=== PATIENT | female | born 2000 | race Caucasian/White ===

== ENCOUNTER 2022-08-09 08:12 | Outpatient (CLI) | payer BC, SELFPAY ==
--- NOTE | 2022-08-09 08:15 | CRLHL7_ITS ---
For Patients: As a result of the Cures Act, medical imaging exams and procedure reports are released immediately into your electronic medical record. You may view this report before your referring provider. If you have questions, please contact your health care provider. INDICATION: First trimester scan, establish dates. COMPARISON: None. TECHNIQUE: Real-time lopez-scale imaging of the pelvis was performed. FINDINGS: Sonographic imaging demonstrates a single living intrauterine gestation. The embryo demonstrates a regular cardiac rate measuring 159 beats per minute. The embryo`s crown-rump length measurement of 6.2 cm corresponds to a gestational age of 12 weeks 4 days with a sonographic due date of 02/17/2023. There is a normal-appearing yolk sac. There are no gross abnormalities noted within the embryo at this early state of development. The gestational sac has a normal appearance. There is no evidence of a perigestational hemorrhage. The amount of fluid within the sac appears appropriate for gestational age. The cervix is closed. The myometrium appears somewhat hypervascular, likely incidental. The ovaries are of normal size. There are no suspicious fluid collections noted in the cul-de-sac. IMPRESSION: Single living intrauterine with sonographic gestational age 12 weeks 4 days and sonographic due date 02/17/2023. Dictated by Konrad Bull MD @ 08/09/2022 10:40:19 AM (Electronically Signed)
== END 2022-08-09 08:13 | disposition home or self-care (01) ==
LOC: US 08:13
PROVIDERS: PCP Family Medicine; Visit Provider Advanced Practice Midwife
DX: Z34.91 Encounter for supervision of normal pregnancy, unspecified, first trimester (principal); Z3A.11 11 weeks gestation of pregnancy
CPT/HCPCS: 0353U; 76801; 80306; 84443; 86592; 86703; 86762; 86787; 86803; 86850; 86900; 86901; 87086; 87340; 87491; 87591

== ENCOUNTER 2022-08-09 09:04 | Outpatient (CLI) | payer BC, SELFPAY ==
[2022-08-09 14:58] LABS: Chlamydia DNA Amplified* NOT DETECTED (No Detected); GC DNA Amplified* NOT DETECTED (No Detected)
== END 2022-08-09 09:05 | disposition home or self-care (01) ==
PROVIDERS: PCP Family Medicine; Visit Provider Advanced Practice Midwife
DX: Z34.91 Encounter for supervision of normal pregnancy, unspecified, first trimester (principal); Z3A.11 11 weeks gestation of pregnancy
CPT/HCPCS: 0353U; 80306; 84443; 86592; 86703; 86762; 86787; 86803; 86850; 86900; 86901; 87086; 87340

== ENCOUNTER 2022-11-30 13:49 | Outpatient (CLI) | payer MEDICAID, SELFPAY ==
[2022-11-30 18:19] LABS: Chlamydia DNA Amplified* NOT DETECTED (No Detected); GC DNA Amplified* NOT DETECTED (No Detected)
== END 2022-11-30 13:50 | disposition home or self-care (01) ==
PROVIDERS: PCP Family Medicine; Visit Provider Obstetrics & Gynecology
DX: Z34.93 Encounter for supervision of normal pregnancy, unspecified, third trimester (principal); Z3A.28 28 weeks gestation of pregnancy
CPT/HCPCS: 86592; 86703; 86803; 87340; 87491; 87591

== ENCOUNTER 2023-01-25 11:17 | Outpatient (CLI) | payer MEDICAID, SELFPAY ==
[2023-01-25 12:00] LABS: Amnisure Rom* Negative
[2023-01-25 17:49] LABS: Chlamydia DNA Amplified* NOT DETECTED (No Detected); GC DNA Amplified* NOT DETECTED (No Detected)
[2023-01-26 19:49] LABS: Strep B DNA Probe POSITIVE (Negative)
[2023-01-26 19:50] LABS: Strep B Pen/Amox Allergy No
== END 2023-01-25 11:18 | disposition home or self-care (01) ==
PROVIDERS: PCP Family Medicine; Visit Provider Obstetrics & Gynecology
DX: Z34.93 Encounter for supervision of normal pregnancy, unspecified, third trimester (principal); O26.893 Other specified pregnancy related conditions, third trimester; N89.8 Other specified noninflammatory disorders of vagina; Z3A.38 38 weeks gestation of pregnancy
CPT/HCPCS: 84112; 87081; 87491; 87591; 87653

== ENCOUNTER 2023-02-15 13:41 | Outpatient (CLI) | payer MEDICAID, SELFPAY | END 2023-02-15 13:42 | disposition home or self-care (01) | PROVIDERS: PCP Family Medicine; Visit Provider Obstetrics & Gynecology | DX: Z34.90 Encounter for supervision of normal pregnancy, unspecified, unspecified trimester (principal); B37.31 Acute candidiasis of vulva and vagina | CPT/HCPCS: 87086 ==

== ENCOUNTER 2023-02-21 18:30 | Inpatient (IN) | payer MEDICAID, SELFPAY ==
[2023-02-21] VITALS (46 sets, daily range): BP systolic 115–152; BP diastolic 66–93; PULSE 75–119; RESP 16–20; TEMP 36.6–37; O2SAT 98–100; BMI 27.1
[2023-02-21] MEDS: LACTATED RINGERS 1000 ML 1,000 ML 1200 ML IV ×2 (18:35→20:13)
[2023-02-21] MEDS: AMPICILLIN 2 GM in 0.9 % SODIUM CHLORIDE Mini-bag 100 ML IVPB (19:04)
[2023-02-21] MEDS: fentaNYL 100 MCG/2 ML inj 25 MCG INTRATHECA (19:25)
--- NOTE | 2023-02-21 19:31 | W.PM.LDBA ---
Subjective History of Present Illness Date Seen: 02/21/23 Narrative: Patient is being admitted to Labor and Delivery in labor for delivery. She is a 23 year old at 39 6/7 weeks gestation. Her full history and physical was dictated by Dr. CUNNINGHAM on 02/01/23. Please see this for details. Patient came into labor and delivery with painful uterine contractions and cervical change. Admitted in labor for delivery. Specific Issues/Plans H&P by OCTAVIO on 02/01/23 1. Hx of marijuana use -UDS at [facility] positive -reports continued use at 34 weeks; nightly for insomnia -discussed meconium testing of baby 2. FOB recently cheated on her, concern for possible STD exposure -STI panel repeated at 28 week visit: all negative -Aware to watch for herpes lesions 3. Hx of anxiety and depression -took meds in HS, unsure which -currently looking into therapy 4. Needs PP pap Recently , started dating FOB (Carl), and found out he was cheating on her. He has been at visits since. Lives at home with her parents who are supportive. Covid: vaccinated but not boosted Flu: 02/08/23 Tdap: 12/14/22 OB - Problem Based A/P Additional Plan (1) Active labor: Status: Acute Plan Active stage of labor, GBS positive receiving Ampicillin. ITN in place. Will start pushing now. OB Exam Physical Exam Vital signs: Temp Pulse Resp BP Pulse Ox 98.4 F 78 20 131/81 98 02/21/23 17:21 02/21/23 19:29 02/21/23 17:21 02/21/23 19:29 02/21/23 19:23 Detailed Labor and Delivery Exam Patient Gravid: Yes Dilation (cm): 9 Effacement (%): 100 Cervix position: mid Consistency: soft Tachysystole: No Contraction intensity: Strong/Firm Fetus (Single) Station: 0 Amniotic Membrane Status: AROM (At 9.5cm with cervical check) Amniotic Membrane Fluid Description: Clear Heart Rate Baseline: 110 Monitor Accelerations: Present Monitor Decelerations: None Milieu Manager Variability: Moderate (6-25)
--- NOTE | 2023-02-21 19:32 | P.ANBPRC_ITS ---
[facility] Medical History Adjustment disorder with depressed mood ?F43.21 - Adjustment disorder with depressed mood (ICD-10) Migraine without aura ?G43.009 - Migraine without aura, not intractable, without status migrainosus (ICD-10) Cyclic vomiting syndrome ?R11.15 - Cyclical vomiting syndrome unrelated to migraine (ICD-10) Attention deficit hyperactivity disorder (ADHD), predominantly inattentive type ?F90.0 - Attention-deficit hyperactivity disorder, predominantly inattentive type (ICD-10) Family History Father Attention deficit hyperactivity disorder Maternal Grandmother High blood pressure Mother OCD (obsessive compulsive disorder) Maternal Grandfather Melanoma Paternal Grandfather Cancer Social History Narrative: , non-smoker, no EtOH SOCIAL? ? Education: associates? ? 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 ? Partner: Just got , started dating the FOB, and found out he was cheating on her. Not together, and not sure if he will be involved? ? Lives with: at home? ? Pets: dog? ? Abuse: Denies past (hesitated to answer though), Safe with recent partner also? ? Special Diet: Denies? ? Ok with a blood transfusion: yes? ? Culture or rastafari beliefs: denies? RISK FACTORS? ? Exercise Times/wk: denies? ? Depression/Anxiety: both.? ? Previous Treatments: took meds in HS, does not remember what. Therapy, looking into currently. OTILIA: 7 PHQ 9: 5? ? Seat Belt Use: Routinely ? Smoking: Denies present? ?Vaped X 4 years. Alcohol/day: Prior to finding out she was at 5 weeks. ? ? Caffeine: 1 pop, 1 coffee a day. ? ? Drug Use: Denies present. Stopped marijuana when she was . ? Smoking Status: Former smoker Little interest or pleasure in doing things: several days Feeling down, depressed, or hopeless: not at all Meds Home Medications and Allergies Home Medications Medication Instructions Recorded Confirmed Type prenat.vits,charlie,kuq-[id number] 1 tab PO QDAY 08/05/22 02/15/23 History calcium carbonate 600 mg calcium 600 mg PO QDAY 11/02/22 02/15/23 History (1,500 mg) tablet (Calcium) Allergies Allergy/AdvReac Type Severity Reaction Status Date / Time No Known Drug Allergies Allergy Verified 02/21/23 17:39 Results Vital Signs Vital Signs: Last Vital Signs Temp 98.4 F 02/21/23 17:21 Pulse 117 H 02/21/23 19:32 Resp 20 02/21/23 17:21 BP 135/82 02/21/23 19:32 Pulse Ox 98 02/21/23 19:23 Weight: 71.849 kg Height: 162.56 cm Anesthesia Procedures Intrathecal Patient Location: OB Start Time: 19:15 Stop Time: 19:30 Start Date: 02/21/23 Stop Date: 02/21/23 Reason for Block: procedure for pain Patient Position: sitting Performed By: Suzie Tanner Preanesthetic Checklist: IV checked, risks and benefits discussed, monitors and equipment checked, pre-op evaluation and timeout performed Prep: chlorhexidine gluconate Monitoring: blood pressure monitoring, continuous pulse oximetry and heart rate Approach: midline Vertebral Space: lumbar (1-5) Needle Type: Pencan Injection Technique: single-shot Needle gauge: 25 Needle Length (cm): 10 cm Events: cerebrospinal fluid
[2023-02-21] MEDS: OXYTOCIN 30 unit/500 ML in NS 30 UNIT/500 ML BAG 300 UNIT IVPB (20:50)
--- NOTE | 2023-02-21 21:17 | W.PM.OBVAGDE ---
OB Procedure Vag Delivery Mother Details Mother Details: The patient is a 23 year-old, 2, Para 0, admitted on 02/21/23 at 39 6/7 Days gestation. Admitted in labor for delivery. : 2 Para: 1 Weeks Gestation: 39.6 Admission Date: 02/21/23 Additional Details Amniotic Membrane Status: SROM (At 9.5cm with cervical check) Amniotic Membrane Rupture Date: 02/21/23 Amniotic Membrane Rupture Time: 19:29 Amniotic Membrane Fluid Description: Clear Analgesia/Anesthesia Type: Intrathecal Waterbirth: No Pitcoin: No Intrapartal Events: Precipitous Labor <3 Hrs Labor Onset: 18:30 Complete: 19:40 Pushin:39 Heart: heart tones during second stage were category 2. Deep deceleration with pushing and slow recovery, but good acceleration with scalp stimulation and variability. Delivery Details Delivery Date: 02/21/23 Delivery Time: 20:49 Route of delivery: Infant Gender: Male Infant Viability: Alive; Heart Rate Present Position at Delivery: OA Delivery Details: Patient had moderate crown and good pushing efforts, perineum noted to be not stretching out with good pushing efforts for at least 2 sets of contractions. Recommendation was given to perform episiotomy, verbal consent obtained. Adequate anesthesia confirmed and with next push a mediolateral episiotomy was performed with subsequent delivery of baby via spontaneous vaginal delivery. Infant was placed on maternal abdomen.? Cord was clamped and cut after a 30-60 second delay. Nose and mouth were bulb suctioned.? Infant weight pending. 1 Minute Interval Total Score: 8 5 Minute Interval Total Score: 8 Additional Details Shoulder Dystocia: No Placenta Delivery Time: 20:53 Placental Delivery Description: Spontaneous Delivery repair: Vicryl Procedure Done: Global Blood Loss: 50 Laceration: Periurethral - 1st Degree Episiotomy Description: Left Mediolateral Blood Loss Measurement Type: QBL Bakri Used: No Sponge/Need Count Correct: Yes Cord Vessel Description: 3 Vessels, Nuchal Cord and Delivered through Event Summary Status: Mother and were stable after delivery. Disposition: floor
[2023-02-21] MEDS: ACETAMINOPHEN 500 MG TABLET 1000 MG PO (21:48)
[2023-02-22] MEDS: IBUPROFEN 600 MG TABLET PO ×2 (00:24→09:09)
[2023-02-22 00:35] VITALS: BP 128/79; PULSE 89; RESP 16; TEMP 36.6; O2SAT 98
[2023-02-22] MEDS: LANOLIN CREAM 1 APPLIC TOPICAL (01:30)
[2023-02-22] MEDS: ACETAMINOPHEN 500 MG TABLET 1000 MG PO ×3 (04:18→21:21)
[2023-02-22 04:26] VITALS: BP 113/69; PULSE 86; RESP 16; TEMP 36.8; O2SAT 98
[2023-02-22 06:42] LABS: Hemoglobin* 10.2 gm/dL (12.0-16.0)
[2023-02-22 07:45] VITALS: BP 111/79; PULSE 82; RESP 16; TEMP 37; O2SAT 99
[2023-02-22] MEDS: DOCUSATE SODIUM 100 MG CAPSULE PO (09:09)
--- NOTE | 2023-02-22 10:45 | P.OBPN_ITS ---
OB - PN:Subj Subjective Date Seen: 02/22/23 Patient comments OB post-: no complaints and pain well controlled [place] infant status: and doing well [place] feeding status: exclusively Narrative: Tania is a 23 y.o. who was admitted to [facility] for IOL for postdates.? She had an uncomplicated NVD.? ?? The patient feels well.? The pain is well controlled with current medications.? She has no new complaints.? She is breast feeding and reports things are going well.? the patient has done well.? Vitals have been stable.? She has remained afebrile.? Has a good appetite, is tolerating a general diet.? She is voiding without difficulty.? She is passing gas and has not had a bowel movement.? She is ambulating and denies any dizziness.? Has Small amount of rubra lochia.? OB - PN: Obj Exam Physical Exam: Vital signs: Temp Pulse Resp BP Pulse Ox O2 Del Method 98.6 F 82 16 111/79 99 Room Air 02/22/23 07:45 02/22/23 07:45 02/22/23 07:45 02/22/23 07:45 02/22/23 07:45 02/22/23 07:45 Narrative: GENERAL APPEARANCE:? normal affect, alert, no distress? MOOD:? appropriate? HEENT: normocephalic, neck supple, full ROM? CHEST:? Symmetrical chest wall movement.? Normal respiratory effort.? Clear to auscultation ? HEART:? regular rate and rhythm? ABDOMEN:? soft, non-tender. Uterine fundus is firm, at Umbilicus, Midline and is appropriate for the stage of recovery.? PERINEUM:? mild edema of the perineum, there is a periurethral degree laceration and a mediolateral episiotomy that is healing well.? EXTREMITIES:? normal and 1+ edema? OB - PN: Obj Data Labs Labs: Laboratory Results - last 24 hr 02/22/23 06:04 Hgb 10.2 L OB - PN: A/P Delivery Assessment and Plan (1) care and examination immediately after delivery: Status: Acute (2) Lactating mother: Status: Acute Plan day: 1 Plan: routine care Comments: G 2 P 1 status post uncomplicated NVD??? 1.? Continue route PP cares? 2.? .? May see if desired? 3.? Anticipate discharge home tomorrow?
[2023-02-22 11:30] VITALS: BP 112/74; PULSE 98; RESP 16; TEMP 36.8; O2SAT 98
[2023-02-22 15:36] VITALS: BP 129/70; PULSE 86; RESP 18; TEMP 36.8; O2SAT 98
--- NOTE | 2023-02-22 16:58 | PC.SOCIAL ---
Addendum entered by GIULIA Oneill 02/27/23 10:44: On 02/23/23, received a message from [facility] CPS worker, Jillian Don, informing that the report was screened in for family assessment. On 02/27, faxed umbilical test results [facility] at [phone]. Original Note: Received a social work referral for pt for resources and admitting to THC use throughout . Met with pt and pt's former significant other ('s father). Discussed THC drug use through . Pt admits to using THC through entire approximately two times a week for feelings of insomnia. Pt is aware that drug screening was completed on and results are pending. Informed pt that this worker will be completing a CPS report to [facility]. Discussed that process with pt. Discussed pt's current social environment. Pt has support of the 's father, however, she reports they are no longer in a relationship. Pt currently lives with her parents and reports that they are very supportive. Pt informs that the 's paternal grandmother is also very supportive. Pt is currently receiving WIC services through [facility]. Provided contact information for [employer] parenting support through [facility]. Discussed the community action agencies in [facility] which include [facility] in [place] and [facility] in [place] and provided contact information for each agency. Pt feels well supported and is not in need of any other resources at this time. Informed pt that she may reach out to social work if she has any further questions. Phone call to [facility] CPS intake at [phone] and left voicemail leaving verbal report for neglect. Completed written CPS report and faxed to [facility] at [phone]. Social work will follow up as needed.
[2023-02-22 19:30] VITALS: BP 118/81; PULSE 86; RESP 16; TEMP 37.2; O2SAT 97
[2023-02-23 03:49] VITALS: BP 122/83; PULSE 78; RESP 16; TEMP 36.9; O2SAT 98
--- NOTE | 2023-02-23 07:20 | P.DS_ITS ---
DS: Providers Provider Date Seen: 02/23/23 Date of admission: 02/21/23 18:30 Primary care physician: Konrad Horton MD Admitting Clinician: Valerie Barahona MD Attending Physician on discharge: Valerie Barahona MD Date of Discharge: 02/23/23 DS: Diagnosis Discharge Diagnosis (1) Lactating mother: Status: Acute (2) care following vaginal delivery: Status: Acute (3) Borderline personality disorder: Status: Acute (4) Adjustment disorder with depressed mood: Status: Acute (5) Attention deficit hyperactivity disorder (ADHD), predominantly inattentive type: Status: Acute Exam Narrative: Exam Narrative: GENERAL APPEARANCE:? normal affect, alert, no distress? MOOD:? appropriate? CHEST:? clear to auscultation and percussion? HEART:? regular rate and rhythm? ABDOMEN:? soft, non-tender the uterine fundus is 2 cm Below Umbilicus, Midline and is appropriate for the stage of recovery. ? PERINEUM:? mild edema of the perineum, there is a left mediolateral episiotomy that is healing well.? EXTREMITIES:? normal and no edema? Patient has no complaints? No active bleeding?? Doing well? She is requesting discharge home.? Const: Vital Signs, click to edit/add: Vital Signs - 24 hr 02/22/23 07:45 02/22/23 11:30 02/22/23 15:36 Temperature 98.6 F 98.3 F 98.2 F Pulse Rate [Pulse Oximeter] 82 98 86 Respiratory Rate 16 16 18 Blood Pressure [Ri ght Arm] 111/79 112/74 129/70 Pulse Oximetry 99 98 98 Oxygen Delivery Me thod Room Air Room Air Room Air 02/22/23 19:30 02/23/23 03:49 Temperature 99 F 98.5 F Pulse Rate [Pulse Oximeter] 86 78 Respiratory Rate 16 16 Blood Pressure [Ri ght Arm] 118/81 122/83 Pulse Oximetry 97 98 Oxygen Delivery Me thod Room Air Room Air Documenting provider has reviewed patient's vital signs: yes OB - DS: Summary Hospital Course Hospital Course: The patient is a 23 year old G 2 P 1 at 39.6 weeks gestation that was admitted to the Center on 02/21/23 for an elective IOL. She had an uncomplicated vaginal delivery. She delivered a viable male . She is breast feeding. the patient has done well. She is passing gas but has not had a bowel movement. She is and reports that it is going well. Pain is well controlled. She is planning minipill for control. Peripartum Data delivery method: Vaginal Laceration description: Periurethral - 1st Degree Episiotomy description: Left Mediolateral complications: none [place] Gender: Male Infant Discharge Plan: Home Status at Discharge Functional status at discharge: independent ambulation Overall status at discharge: patient is progressing back to baseline Time Spent with Patient Time attestation: Total time spent providing and/or coordinating discharge services: Discharge Plan Discharge Disposition: Home, Self-Care Date of Admission: 02/21/23 18:30 Attending Provider on Discharge: Marisela Shields Primary Care Provider: Konrad Horton Condition: Stable Anticipated Discharge Date/Time: 02/23/23 10:00 Discharge Medications: New docusate sodium 100 mg Capsule 100 mg PO DAILY Qty: 60 0RF Rx Instructions: Take 1-2 tablets daily as needed for constipation. ibuprofen 600 mg Tablet 600 mg PO Q6H PRNQty: 30 0RF Continued prenat.vits,charlie,[id number] Tablet 1 tab PO QDAY calcium carbonate [Calcium 600] 600 mg calcium (1,500 mg) tablet 600 mg PO QDAY Discontinued fluconazole 150 mg tablet 150 mg PO ONCE Qty: 1 0RF Rx Instructions: as a single dose Discharge Orders: Discharge Order (Routine); Ordered 02/23/23 Ordered By: Marisela Shields Patient Education: OB Vaginal/Breast Feeding Additional Instructions: Discharge instructions were reviewed with the patient including signs and symptoms of infection and home going medications.? Lifting Restrictions: 20 pounds for 6? weeks? ?? Do not drive while taking narcotic pain meds.? Off Work or School for 6 weeks.? ?? Symptoms to report to doctor:? -Bleeding that saturates more than one pad per hour? -Passing clots larger than the size of a golf ball? -Pain not relieved by prescribed medication? -Fever above 100.4 degrees Fahrenheit? -A foul vaginal odor? -Difficulty in emotions, mood and functions? -Thoughts of hurting yourself and/or ? -Painful, reddened area in your breast? -Any drainage, redness or tenderness in your IV/epidural site? -Severe headache that doesn't improve after taking medications? -Changes in vision, including temporary loss of vision, blurred vision, and/or light sensitivity? -Upper abdominal pain (usually under ribs on the right side)? -Decrease in urination or painful, frequent urinating? -Chest pain? -Shortness of breath? -Tenderness or pain with redness and/swelling in the calf(s) of your leg? ?? Follow Up in clinic in 2 and 6 weeks.? ?? consultation services are available to all mothers and babies for the first year after delivery.? To make an appointment, please call [phone].? Activity Level: Activity as Tolerated Follow Up Appointments: Konrad Horton MD [Primary Care Provider] - [facility] [Provider Group] Forms: MyHealth Info Instructions
[2023-02-23 07:44] VITALS: BP 110/73; PULSE 88; RESP 16; TEMP 36.6; O2SAT 98
[2023-02-23] MEDS: DOCUSATE SODIUM 100 MG CAPSULE PO (08:22)
== END 2023-02-23 12:10 | disposition home or self-care (01) | DRG 807 ==
LOC: OB OUT 03-01 09:14
PROVIDERS: Admitting Provider Obstetrics & Gynecology; PCP Family Medicine; Visit Provider Obstetrics & Gynecology
DX: O70.0 First degree perineal laceration during delivery (principal); Z37.0 Single live birth; Z3A.39 39 weeks gestation of pregnancy; O99.824 Streptococcus B carrier state complicating childbirth
CPT/HCPCS: 36415; 85018; 99213; A9270; J0290; J3010; J7120

== ENCOUNTER 2023-04-28 15:15 | Outpatient (CLI) | payer MEDICAID, SELFPAY ==
--- NOTE | 2023-04-28 17:00 | P.LACCB_ITS ---
Consult Note - Mom Date of Visit Date of visit: 04/28/23 commercial solar sales consultant: Lilliana Smith Visit Code: Visit Patient's Information Phone number: [phone] : 2 Para: 1 Allergies No Known Drug Allergies Allergy (Verified 04/04/23 14:27) Mother's Medical History: Medical History (Updated 04/26/23 @ 14:10 by Konrad Horton MD) Adjustment disorder with depressed mood ?F43.21 - Adjustment disorder with depressed mood (ICD-10) Migraine without aura ?G43.009 - Migraine without aura, not intractable, without status migrainosus (ICD-10) Attention deficit hyperactivity disorder (ADHD), predominantly inattentive type ?F90.0 - Attention-deficit hyperactivity disorder, predominantly inattentive type (ICD-10) Hx of marijuana use before patient learned she was Work Plans: Currently working three days/week at [employer] Delivery Information Delivery type: Vaginal Weeks Gestation: 39.6 Gestational Age: AGA Weight: 3.175 kg Discharge Weight: 2.997 kg Baby's Information Baby's Age at Visit: 2 months Baby's Provider or Clinic: Dr. Horton Reason for Consult Reason for Consult: concern from supply Past Experience Past Experience: No Current Frequency of Day Feedings: baby is eating at about 8 times/24 hours Both Breasts: Yes (mom offers) Suck: fairly strong Latch: fairly wide Length of Time: 25 - 30 minutes total Pumping Pumping: Yes (pumping when at work for the 2 - 3 bottle feedings at home) Quantity Pumped: 2 - 5 oz total Supplementing EMB Supplement: Yes (gets 2 - 3 bottle/day) Formula Supplement: No Baby Elimination Number of Wet Diapers a Day: 6- 8/day Number of BM a Day: 1 - 2/day Breast/Nipple Condition Breast Information: WNL Maternal Nipple Condition - Left: Common Nipple Maternal Nipple Condition - Right: Common Nipple Sore Nipples: No Onsite Pre-Feed weight: 4.454 kg Post-Feed weight: 4.578 kg Milk Transferred (mL): 124 Assessments/Interventions Assessments/Interventions: Met with mom and this now 2 month old ex- term AGA baby for consult. Per the note from PCP on 04/26, mom was concerned about a constant pain in the right breast that was worse when nursing. Today mom states that has basically resolved and she's more concerned about her supply and how much baby is getting when he nurses. She reports he gets about 8 feedings/24 hours. When she's home with him she nurses, although he does receive two 3 oz bottles overnight. She works three days/week and he's obviously bottle fed when she's at work. sessions last 20 - 30 minutes and he usually takes both sides. She has a new MC2 pump and is using a 19 mm flange. Breasts WNL- symmetrical with rounded lower quadrants, intramammary distance < 1.5 inches. Nipples are everted and don't flatten or retract on compression, no damage noted. Baby has gained 16 grams/day since his 2 month WCC on 04/26 and he has dropped from the 20th percentile to the 2nd percentile. Per POC he seems to favor turni ng his head to the right, but moves his extremities equally. His palate is a little high. His upper and lower frenulum appear to be WNL. He had trouble sucking on a finger, but when he did the tongue didn't consistently extend over the gumline. The tongue did have fairly good lateral movement. Mom latched baby to the right side in the football hold and he had a wide latch, she was comfortable. He took nutritive suckles for about the first 5 minutes, then they seemed to get more pacifying. They did potato picker a little when mom used breast compression. After about 10 minutes she switched him to the left and he nursed in the same pattern. After about 10 minutes he was weighed and had transferred 108 ml (3.6 oz). Suggested mom offer the left side one more time and he nursed another 5 - 7 minutes while mom did hand expression. When he was weighed again he had transferred another 16 ml for a total of 124 ml (4.1 oz). Mom was measured and her 19 mm flange is a good size. If she wanted to experiment she could try 16 - 17 mm inserts and see if this made a difference in comfort and/or amount pumped. Attempted to show dad an exercise he could try to help baby extend his tongue over the gum line but baby wouldn't suck on the finger long enough to show him. Plan: 1. Continue nursing when you're home with him, but try offering three sides and doing more breast compression throughout the feeding. If possible, see if you can get one more feeding in each day (breast or bottle). 2. Continue with the BID/TID supplementation, could see if he would take 4 oz. 3. Continue her current pumping schedule of pumping when at work and for the times he's given a bottle at home. Reviewed pumping after an powertrain engineer nursing session usually gives moms the most milk. Gave suggestions on how to restart the flow when it slows or stops, but ok to keep the pumping session to 15 - 20 minutes total. 4. Will f/u for a pre and post feeding weight on 05/10/23. Meds Home Medications and Allergies Home Medications Medication Instructions Recorded Confirmed Type prenat.vits,charlie,[id number] 1 tab PO QDAY 08/05/22 04/04/23 History Allergies Allergy/AdvReac Type Severity Reaction Status Date / Time No Known Drug Allergies Allergy Verified 04/04/23 14:27
== END 2023-04-28 15:16 | disposition home or self-care (01) ==
LOC: OB LAC 15:16
PROVIDERS: PCP Family Medicine; Visit Provider Family Medicine
DX: P92.5 Neonatal difficulty in feeding at breast (principal)
CPT/HCPCS: G0463

== ENCOUNTER 2024-09-09 11:25 | Outpatient (CLI) | payer OTHER, SELFPAY ==
[2024-09-09 14:02] LABS: Basophils Absolute Auto 0.04 K/uL (0.00-0.30); Basophils Percent Auto 0.5 % (0.0-3.0); Eosinophils Absolute Auto 0.21 K/uL (0.00-0.50); Eosinophils Percent Auto 2.8 % (0.0-7.0); Hematocrit 41.4 % (33.0-51.0); Hemoglobin* 14.2 gm/dL (12.0-16.0); Immature Granulocytes Abs Auto 0.01 K/uL (0.00-0.30); Immature Granulocytes Pct Auto 0.1 %; Lymphocytes Absolute Auto 2.26 K/uL (0.90-2.90); Lymphocytes Percent Auto 30.7 % (20-44); Mean Corpuscular HGB Conc 34 gm/dL (32-36); Mean Corpuscular Hemoglobin 32 pg (26-34); Mean Corpuscular Volume 94 fL (80-100); Monocytes Percent Auto 6.4 % (0.0-11.0); Neutrophils Absolute Auto 4.38 K/uL (1.7-7.0); Neutrophils Percent Auto 59.5 % (42.0-72.0); Platelet Count* 297 K/uL (140-440); RDW Coefficient of Variation % 11.6 % (11.5-15.5); Red Blood Count 4.43 m/uL (4.00-5.20); White Blood Count* 7.37 K/uL (4.50-11.00)
[2024-09-09 14:05] LABS: Chloride* 103 mmol/L (96-114); Potassium* 3.6 mmol/L (3.6-5.1); Sodium* 140 mmol/L (135-149)
[2024-09-09 14:06] LABS: Slide Review Reflex No
[2024-09-09 14:08] LABS: Blood Urea Nitrogen* 12 mg/dL (5-24); Creatinine* 0.7 mg/dL (0.5-1.5); Estimated Glomerular Filt Rate 124 ml/min
[2024-09-09 14:09] LABS: Anion Gap 11 mEq/L (7-15); Calcium* 9.1 mg/dL (8.4-10.6); Carbon Dioxide* 26 mmol/L (20-32); Glucose* 70 mg/dL (60-115)
[2024-09-09 15:14] LABS: TSH With Reflex to FT4* 0.718 uIU/mL (0.270-4.200)
== END 2024-09-09 11:26 | disposition home or self-care (01) ==
PROVIDERS: PCP Family Medicine; Visit Provider Family Medicine
DX: R55 Syncope and collapse (principal); F33.9 Major depressive disorder, recurrent, unspecified; F90.0 Attention-deficit hyperactivity disorder, predominantly inattentive type
CPT/HCPCS: 80048; 84443; 85025